=== PATIENT | male | born 1975 | race Caucasian/White ===

== ENCOUNTER 2020-09-25 13:39 | Outpatient (CLI) | payer OTHER ==
--- NOTE | 2020-09-25 18:52 | XRAY Report ---
PROCEDURE: Ankle 3 View LT INDICATIONS: INJURY TO LEFT LOWER LEG TECHNIQUE: 3 views of the ankle were acquired. COMPARISON: Left lower leg from the same date FINDINGS: Bones: No fractures or dislocations at the ankle. A proximal fibular shaft fracture is noted. Ankle mortise is normally aligned. No suspicious bony lesions. Soft tissues: No tibiotalar joint effusion. Achilles tendon appears normal. Left ankle swelling. IMPRESSION: No evidence acute bony abnormality of the left ankle. Proximal fibular shaft fracture. Reviewed by: Norbert Randle MD on 09/25/2020 5:51 PM ALEXANDER Approved by: Norbert Randle MD on 09/25/2020 5:51 PM ALEXANDER Station ID: [id number]
--- NOTE | 2020-09-25 18:53 | XRAY Report ---
PROCEDURE: Tib/Fib LT INDICATIONS: INJURY TO LEFT LOWER LEG TECHNIQUE: 2 views of the tibia and fibula were acquired. COMPARISON: Left ankle from the same day FINDINGS: Bones: Mildly displaced proximal fibular shaft fracture. No suspicious bony lesions. Soft tissues: No suspicious soft tissue calcifications or masses. IMPRESSION: Mildly displaced proximal fibular shaft fracture. Reviewed by: Norbert Randle MD on 09/25/2020 5:52 PM ALEXANDER Approved by: Norbert Randle MD on 09/25/2020 5:52 PM AKJUVE Station ID: [id number]
== END 2020-09-25 23:59 | disposition home or self-care (01) ==
LOC: DI.S 13:39
PROVIDERS: ATTEND Emergency Medicine
DX: S89.92XA Unspecified injury of left lower leg, initial encounter (principal); S82.492A Other fracture of shaft of left fibula, initial encounter for closed fracture

== ENCOUNTER 2020-10-07 18:23 | Outpatient (CLI) | payer OTHER ==
--- NOTE | 2020-10-07 12:28 | XRAY Report ---
PROCEDURE: Ankle 3 View BILAT INDICATIONS: NONDISPLACED JULIA'S FX OF L LEG TECHNIQUE: 3 views of the ankle were acquired. COMPARISON: Tib-fib x-ray 09/25/2020 FINDINGS: Bones: No fractures or dislocations. Ankle mortise is normally aligned. No suspicious bony lesions . Soft tissues: No tibiotalar joint effusion. Achilles tendon appears normal. IMPRESSION: Unremarkable exam. It is noted that the prior exam demonstrates a proximal fibular fract ure. Reviewed by: Parul Smart MD on 10/07/2020 12:27 PM PDT Approved by: Parul Smart MD on 10/07/2020 12:27 PM PDT Station ID: [id number]
== END 2020-10-07 23:59 | disposition home or self-care (01) ==
LOC: DI.N 18:23
PROVIDERS: ATTEND Orthopaedic Surgery
DX: S82.865A Nondisplaced Maisonneuve's fracture of left leg, initial encounter for closed fracture (principal)

== ENCOUNTER 2020-11-22 09:00 | Outpatient (CLI) | payer OTHER ==
--- NOTE | 2020-11-22 10:58 | XRAY Report ---
PROCEDURE: Ankle 3 View LT INDICATIONS: NONDISPLACED MARAFAELUVLucretia'S FX OF LEFT LEG TECHNIQUE: 3 views of the ankle were acquired. COMPARISON: None FINDINGS: Bones: No fractures or dislocations. Ankle mortise is normally aligned. No suspicious bony lesions . Soft tissues: No tibiotalar joint effusion. Achilles tendon appears normal. IMPRESSION: No acute fracture. No osseous lesion. If symptoms and/or clinical suspicion for patholog y continue, further assessment with repeat plain films, or advanced imaging (e.g., CT, MRI, or bone s can) is recommended for further assessment. Reviewed by: Musa Campbell MD on 11/22/2020 10:57 AM PDT Approved by: Musa Campbell MD on 11/22/2020 10:57 AM PDT Station ID: [id number]
--- NOTE | 2020-11-22 16:38 | XRAY Report ---
PROCEDURE: Tib/Fib LT INDICATIONS: NONDISPLACED MAISONNEUVE'S FX OF LEFT LEG TECHNIQUE: 2 views of the tibia and fibula were acquired. COMPARISON: X-ray ankle 11/22/2020, ankle/lower extremity 10/07/2020, 09/25/2020 FINDINGS: Bones: There is continued interval callus formation with stable alignment of proximal fibular fractur e. No suspicious bony lesions. Soft tissues: No suspicious soft tissue calcifications or masses. IMPRESSION: Continued interval healing with stable alignment of proximal fibular fracture. Reviewed by: Parul Smart MD on 11/22/2020 4:36 PM PDT Approved by: Parul Smart MD on 11/22/2020 4:36 PM PDT Station ID: [id number]
== END 2020-11-22 23:59 | disposition home or self-care (01) ==
LOC: DI.N 09:00
PROVIDERS: ATTEND Orthopaedic Surgery
DX: S82.832D Other fracture of upper and lower end of left fibula, subsequent encounter for closed fracture with routine healing (principal)